=== PATIENT | female | born 1965 | race African-American/Black ===

== ENCOUNTER → 2019-02-15 | Outpatient (CLI) | payer MEDICAID ==
[2019-02-15 09:55] LABS: ABSOLUTE BASOPHILS # (AUTO) 0.1 10^3/uL (0.0-0.2); ABSOLUTE EOSINOPHILS # (AUTO) 0.3 10^3/uL (0.0-0.6); ABSOLUTE LYMPHOCYTES (AUTO) 2.7 10^3/uL (0.5-4.7); ABSOLUTE MONOCYTES (AUTO) 0.9 10^3/uL (0.1-1.4); ABSOLUTE NEUT (AUTO) 5.5 10^3/uL (1.7-8.2); BASOPHILS % (AUTO) 0.7 % (0-2); EOSINOPHILS % (AUTO) 3.2 % (0-6); HEMATOCRIT 35.6 % (36.0-47.0); HEMOGLOBIN 11.5 g/dL (12.0-15.5); LYMPHOCYTES % (AUTO) 28.8 % (13-45); MEAN CORPUSCULAR HEMOGLOBIN 24.2 pg (27.0-33.4); MEAN CORPUSCULAR HGB CONC 32.5 g/dL (32.0-36.0); MEAN CORPUSCULAR VOLUME 75 fl (80-97); MONOCYTES % (AUTO) 9.1 % (3-13); PLATELET COUNT 319 10^3/uL (150-450); RED BLOOD COUNT 4.77 10^6/uL (3.72-5.28); RED CELL DISTRIBUTION WIDTH 15.7 % (11.5-14.0); SEGMENTED NEUTROPHILS % (AUTO) 58.2 % (42-78); TOTAL CELLS COUNTED % (AUTO) 100 %; WHITE BLOOD COUNT 9.5 10^3/uL (4.0-10.5)
[2019-02-15 10:10] LABS: ALBUMIN 4.5 g/dL (3.5-5.0); ALKALINE PHOSPHATASE 78 U/L (38-126); ANION GAP 8 (5-19); ASPARTATE AMINO TRANSFERASE 25 U/L (14-36); BILIRUBIN,DIRECT 0.1 mg/dL (0.0-0.4); BILIRUBIN,TOTAL 0.4 mg/dL (0.2-1.3); BLOOD UREA NITROGEN 10 mg/dL (7-20); CALCIUM 10.4 mg/dL (8.4-10.2); CARBON DIOXIDE 32 mmol/L (22-30); CHLORIDE 102 mmol/L (98-107); CHOLESTEROL 246.38 mg/dL (0-200); GLUCOSE 92 mg/dL (75-110); POTASSIUM 3.9 mmol/L (3.6-5.0); TOTAL PROTEIN 7.4 g/dL (6.3-8.2); TRIGLYCERIDES 181 mg/dL (<150)
[2019-02-15 10:21] LABS: DIRECT LDL 173 mg/dL (<100)
[2019-02-15 10:34] LABS: VLDL CHOLESTEROL 36.2 mg/dL (10-31)
--- NOTE | 2019-02-15 11:35 | RADIOLOGY REPORT (SQ) ---
EXAM DESCRIPTION: LUMBAR SPINE COMPLETE COMPLETED DATE/TIME: 02/15/2019 9:06 am REASON FOR STUDY: LOW BACK PAIN E78.5 HYPERLIPIDEMIA, UNSPECIFIED I10 ESSENTIAL (PRIMARY) HYPERTEN L[place]NOX E78.5 HYPERLIPIDEMIA, UNSPECIFIED COMPARISON: None. NUMBER OF VIEWS: Five views including obliques. TECHNIQUE: AP, lateral, oblique, and sacral radiographic images acquired of the lumbar spine. LIMITATIONS: None. FINDINGS: MINERALIZATION: Normal. SEGMENTATION: There are 5 lumbar-type vertebral bodies. There is no transition anatomy at the lumbos acral junction. ALIGNMENT: Normal. VERTEBRAE: The lumbar vertebral body heights are preserved. There is no fracture. DISCS: The intervertebral disc spaces are preserved; there are mild anterolateral osteophytes at L3-L 4 and L4-L5. POSTERIOR ELEMENTS: The L4-5 and L5-S1 facet joints are hypertrophied and sclerotic. There is no pa rs interarticularis defect. HARDWARE: None in the spine. PARASPINAL SOFT TISSUES: Surgical clips in the gallbladder fossa. PELVIS: Intact. OTHER: Chronic fracture deformity of the right 12th rib. IMPRESSION: Facet joint arthropathy at L4-5 and L5-S1. TECHNICAL DOCUMENTATION: JOB ID: [id number] [employer]- All Rights Reserved Reading location - IP/workstation name: [email or web address]
== END ==
LOC: OD 08:50
PROVIDERS: ATTEND Nurse Practitioner Family
DX: E78.5 Hyperlipidemia, unspecified (principal); I10 Essential (primary) hypertension; M54.5 Low back pain
CPT/HCPCS: 36415; 72110; 80053; 80061; 85025